=== PATIENT | male | born 1975 | race Caucasian/White ===

== ENCOUNTER 2021-03-18 09:53 | Emergency (ER) | payer MEDICAID, MEDICARE ==
[~2021-03-18] VITALS: Ht 180.3 cm; Wt 70.5 kg
[~2021-03-18 09:53] MED LIST: FAMO20TA44 PO; HYDR1TAB PO; OMEP20CA15 PO; OXYC-145 PO; SUCR1ORA2 PO
[2021-03-18 10:25] VITALS: BP 106/73
== END 2021-03-18 12:36 | disposition home or self-care (01) ==
LOC: ER 09:53
DX: S93.401A Sprain of unspecified ligament of right ankle, initial encounter (principal); M25.571 Pain in right ankle and joints of right foot; G89.29 Other chronic pain; Z98.890 Other specified postprocedural states; Z72.89 Other problems related to lifestyle; Z79.899 Other long term (current) drug therapy; X58.XXXA Exposure to other specified factors, initial encounter; Y93.89 Activity, other specified; Y92.89 Other specified places as the place of occurrence of the external cause; Y99.8 Other external cause status
CPT/HCPCS: 73610; 99283

== ENCOUNTER 2021-03-29 22:17 | Emergency (ER) | payer MEDICARE ==
[~2021-03-29] VITALS: Ht 180.3 cm; Wt 59.5 kg
[2021-03-29 22:33] VITALS: BP 127/84
[2021-03-29] MEDS ORDERED: tetanus & diphtheria toxoid (Td) vaccine 0.5ml IMVAC ONE (22:55)
[2021-03-29] MEDS ORDERED: LIDOcaine 1% W/epiNEPHrine 1:200,000 10ml vial IJ ONE (23:15)
[2021-03-29] MEDS ORDERED: TETanus/Pertussis (Acell)/Diphther VAC/PF (Tdap-Adult) 0.5ml syringe IMVAC ONE (23:15)
--- NOTE | 2021-03-29 23:33 | NUR ---
eMAR would not update tdap vaccine administration. pt given boostrix 0.5mL to left deltoid. LOT# [id number] EXP 01/28/23
== END 2021-03-30 01:06 | disposition home or self-care (01) ==
LOC: ER 22:17
DX: S91.311A Laceration without foreign body, right foot, initial encounter (principal); S01.81XA Laceration without foreign body of other part of head, initial encounter; G89.29 Other chronic pain; F17.200 Nicotine dependence, unspecified, uncomplicated; Z98.890 Other specified postprocedural states; Z79.899 Other long term (current) drug therapy; W01.198A Fall on same level from slipping, tripping and stumbling with subsequent striking against other object, initial encounter; Y93.E1 Activity, personal bathing and showering; Y92.002 Bathroom of unspecified non-institutional (private) residence as the place of occurrence of the external cause; Y99.8 Other external cause status
CPT/HCPCS: 12001; 12011; 90715; 99283